=== PATIENT | female | born 1980 | race African-American/Black ===

== ENCOUNTER 2019-05-15 11:33 | Emergency (ER) | payer MEDICAID ==
--- NOTE | 2019-05-15 12:34 | ER Document Report ---
ED Medical Screen (RME) - General Chief Complaint: High Blood Pressure Stated Complaint: COUGH Time Seen by Provider: 05/15/19 12:23 Mode of Arrival: Ambulatory Information source: Patient Notes: 38-year-old female presented to ED for complaint of cough cold congestion runny nose with a high blood pressure. She states she does know she takes hydralazine clonidine and lisinopril but is not sure of the doses. She does not have a primary care doctor. She states she has not seen a doctor in over a year and is just been using all the refill she had on her medications. She states she fille d her medications last about a month ago but still has a few medicines at home. She does not have anybody to follow-up with Her blood pressure is 220/110. I have greeted and performed a rapid initial assessment of this patient. A comprehensive ED assessment and evaluation of the patient, analysis of test results and completion of medical decision making process will be conducted by an additional ED providers. - Related Data Allergies/Adverse Reactions: No Known Allergies Allergy (Verified 05/15/19 12:24) Physical Exam - Vital signs Vitals: Temp Pulse Resp BP Pulse Ox 98.6 F 93 18 221/118 H 98 05/15/19 12:05 05/15/19 12:05 05/15/19 12:05 05/15/19 12:05 05/15/19 12:05 Course - Vital Signs Vital signs: Temp Pulse Resp BP Pulse Ox 98.6 F 93 18 221/118 H 98 05/15/19 12:05 05/15/19 12:05 05/15/19 12:05 05/15/19 12:05 05/15/19 12:05
[2019-05-15] MEDS ORDERED: CLONIDINE HCL 0.2 MG TABLET PO ONE (13:20)
[2019-05-15] MEDS ORDERED: AMLODIPINE BESYLATE 10 MG TABLET PO ONE (13:20)
--- NOTE | 2019-05-15 13:30 | ER Document Report ---
ED General - General Chief Complaint: High Blood Pressure Stated Complaint: COUGH Time Seen by Provider: 05/15/19 12:23 Primary Care Provider: MARGIE BANERJEE MD [HONORARY] - Follow up as needed Mode of Arrival: Ambulatory Notes: 38-year-old female with hypertension on 3 drugs difficult to control noncompliant with medical care in over a year presents with elevated blood pressure and cold symptoms. Cough congestion no shortness of breath no chest pain. 3 days. Not taking anything. She takes 2 of her medications and not the third specifically she is on intermittent clonidine but not lisinopril and sometimes hydralazine. Denies any symptoms today other than her cough and cold symptoms. No headache. - Related Data Allergies/Adverse Reactions: No Known Allergies Allergy (Verified 05/15/19 12:24) Past Medical History - General Information source: Patient - Social History Smoking Status: Never Smoker Family History: Hypertension Patient has suicidal ideation: No Patient has homicidal ideation: No Review of Systems - Review of Systems Notes: REVIEW OF SYSTEMS GEN: Denies fever, chills, weight loss ENT: Congestion runny nose EYES: Denies blurry vision, eye pain, discharge CV: Denies chest pain, palpitations, edema RESP: Denies cough, shortness of breath, wheezing GI: Denies abdominal pain, nausea, vomiting, diarrhea MSK: Denies joint pain/swelling, edema, SKIN: Denies rash, skin lesions LYMPH: Denies swollen glands/lymph nodes NEURO: Denies headache, focal weakness or numbness, dizziness PSYCH: Denies depression, suicidal or homicidal ideation PHYSICAL EXAMINATION General: No acute distress, well-nourished Head: Atraumatic, normocephalic ENT: Mouth normal, oropharynx moist, no exudates or tonsillar enlargement Eyes: Conjunctiva normal, pupils equal, lids normal Neck: No JVD, supple, no guarding CVS: Normal rate, regular rhythm, no murmurs Resp: No resp distress, equal and normal breath sounds bilaterally GI: Nondistended, soft, no tenderness to palpation, no rebound or guarding Ext: No deformities, no edema, normal range of motion in upper and lower ext Back: No CVA or midline TTP Skin: No rash, warm Lymphatic: No lymphadeopathy noted Neuro: Awake, alert. Face symmetric. GCS 15. Physical Exam - Vital signs Vitals: Temp Pulse Resp BP Pulse Ox 98.6 F 93 18 221/118 H 98 05/15/19 12:05 05/15/19 12:05 05/15/19 12:05 05/15/19 12:05 05/15/19 12:05 Course - Re-evaluation Re-evalutation: 05/15/19 13:51 URI symptoms in a patient with uncontrolled hypertension Normal exam Doubt pneumonia Doubt aortic disaster, hypertensive emergency or other emergent causes Does not require evaluation at this time but I will treat her with oral blood pressure medicines and refill all of her home medicines, including Coricidin for her symptoms She was encouraged at length to seek primary care follow-up and counseled on the dangers of uncontrolled hypertension I have discussed with the patient there likely diagnosis, aftercare plan, follow-up plans and my usual and customary return precautions. They verbalized understanding of this. - Vital Signs Vital signs: Temp Pulse Resp BP Pulse Ox 98.6 F 93 18 221/118 H 98 05/15/19 12:05 05/15/19 12:05 05/15/19 12:05 05/15/19 12:05 05/15/19 12:05 - Laboratory Result Diagrams: 05/15/19 13:13 05/15/19 13:13 Laboratory results interpreted by me: 05/15/19 13:13 Urine Protein 100 H Urine Blood SMALL H Urine Urobilinogen 4.0 H Leukocyte Esterase Rfl TRACE H Urine Ascorbic Acid 20 H Discharge - Discharge Clinical Impression: Uncontrolled hypertension Condition: Good Disposition: HOME, SELF-CARE Prescriptions: Hydralazine HCl [Apresoline 10 mg Tablet] 10 mg PO QID #120 tablet Clonidine HCl 0.3 mg PO TID #90 tablet Guaifenesin/Dextromethorphan [Coricidin Hbp Chest Donny-Cough] 1 each PO BIDP PRN #12 capsule PRN Reason: Lisinopril 40 mg PO DAILY #30 tablet Referrals: MARGIE BANERJEE MD [HONORARY] - Follow up as needed
[2019-05-15 13:36] LABS: ABSOLUTE BASOPHILS # (AUTO) 0.1 10^3/uL (0.0-0.2); ABSOLUTE EOSINOPHILS # (AUTO) 0.3 10^3/uL (0.0-0.6); ABSOLUTE MONOCYTES (AUTO) 0.5 10^3/uL (0.1-1.4); ABSOLUTE NEUT (AUTO) 4.3 10^3/uL (1.7-8.2); BASOPHILS % (AUTO) 1.2 % (0-2); EOSINOPHILS % (AUTO) 3.5 % (0-6); HEMATOCRIT 37.1 % (36.0-47.0); HEMOGLOBIN 12.9 g/dL (12.0-15.5); LYMPHOCYTES % (AUTO) 27.6 % (13-45); MEAN CORPUSCULAR HEMOGLOBIN 30.9 pg (27.0-33.4); MEAN CORPUSCULAR HGB CONC 34.8 g/dL (32.0-36.0); MEAN CORPUSCULAR VOLUME 89 fl (80-97); MONOCYTES % (AUTO) 7.1 % (3-13); PLATELET COUNT 284 10^3/uL (150-450); RED BLOOD COUNT 4.19 10^6/uL (3.72-5.28); RED CELL DISTRIBUTION WIDTH 13.4 % (11.5-14.0); SEGMENTED NEUTROPHILS % (AUTO) 60.6 % (42-78); TOTAL CELLS COUNTED % (AUTO) 100 %; WHITE BLOOD COUNT 7.1 10^3/uL (4.0-10.5)
[2019-05-15 13:47] LABS: APPEARANCE,URINE SLIGHTLY-CLOUDY; BILIRUBIN,URINE NEGATIVE (NEGATIVE); COLOR,URINE YELLOW; GLUCOSE, URINE NEGATIVE (NEGATIVE); KETONES,URINE NEGATIVE (NEGATIVE); PROTEIN,URINE 100 mg/dL (NEGATIVE); URINE SPECIFIC GRAVITY 1.023
[2019-05-15 13:52] VITALS: BP 215/178
[2019-05-15 13:59] LABS: ALBUMIN 3.9 g/dL (3.5-5.0); ALKALINE PHOSPHATASE 87 U/L (38-126); ANION GAP 6 (5-19); ASPARTATE AMINO TRANSFERASE 25 U/L (14-36); BILIRUBIN,DIRECT 0.2 mg/dL (0.0-0.4); BILIRUBIN,TOTAL 0.6 mg/dL (0.2-1.3); BLOOD UREA NITROGEN 14 mg/dL (7-20); CALCIUM 9.6 mg/dL (8.4-10.2); CARBON DIOXIDE 38 mmol/L (22-30); CHLORIDE 97 mmol/L (98-107); GLUCOSE 112 mg/dL (75-110); POTASSIUM 3.3 mmol/L (3.6-5.0); TOTAL PROTEIN 7.8 g/dL (6.3-8.2)
== END 2019-05-15 13:50 | disposition home or self-care (01) ==
LOC: EDBD → ER 11:33
DX: I10 Essential (primary) hypertension (principal); R05 Cough; R09.81 Nasal congestion; R09.89 Other specified symptoms and signs involving the circulatory and respiratory systems; Z79.899 Other long term (current) drug therapy
CPT/HCPCS: 99283; 36415; 85025; 80053; 81001; J3490

== ENCOUNTER 2020-03-03 05:55 | Emergency (ER) | payer MEDICAID ==
[2020-03-03] MEDS ORDERED: ACETAMINOPHEN 325 MG TABLET PO ONE (08:26)
[2020-03-03] MEDS ORDERED: PENICILLIN G BENZATHINE 1.2 MILLION UNIT/2 ML DISP.SYRIN IM ONE (08:26)
[2020-03-03] MEDS ORDERED: LIDOCAINE 2% VISCOUS SOLN 15 ML UDCUP PO ONE (08:26)
--- NOTE | 2020-03-03 08:31 | ER Document Report ---
HPI - HPI Patient complains to provider of: Sore throat Time Seen by Provider: 03/03/20 08:20 Onset: Yesterday Onset/Duration: Gradual Quality of pain: Achy Pain Level: 3 Context: Patient presents complaint of sore throat that started yesterday. Patient denies any fever, cough, nausea vomiting or diarrhea. Associated Symptoms: Sore throat. denies: Nonproductive cough, Fever, Nausea, Vomiting Exacerbated by: Denies Relieved by: Denies Similar symptoms previously: No Recently seen / treated by doctor: No - ROS ROS below otherwise negative: Yes Systems Reviewed and Negative: Yes All other systems reviewed and negative - CONSTITUTIONAL Constitutional: DENIES: Fever - EENT EENT: REPORTS: Sore Throat. DENIES: Congestion - RESPIRATORY Respiratory: DENIES: Trouble Breathing, Coughing - GASTROINTESTINAL Gastrointestinal: DENIES: Nausea, Patient vomiting, Diarrhea - DERM Skin Color: Normal Skin Problems: None Past Medical History - General Information source: Patient - Social History Smoking Status: Never Smoker Frequency of alcohol use: None Drug Abuse: None Occupation: None Lives with: Family Family History: Hypertension - Past Medical History Cardiac Medical History: Reports: Hx Hypertension Past Surgical History: Reports: Hx Gynecologic Surgery Vertical Provider Document - CONSTITUTIONAL Agree With Documented VS: Yes Exam Limitations: No Limitations General Appearance: WD/WN, No Apparent Distress - HEENT HEENT: Atraumatic, Normocephalic, Pharyngeal Tenderness, Pharyngeal Erythema. negative: Pharyngeal Exudate - NECK Neck: Lymphadenopathy-Left, Lymphadenopathy-Right - RESPIRATORY Respiratory: Breath Sounds Normal, No Respiratory Distress - CARDIOVASCULAR Cardiovascular: Regular Rate, Regular Rhythm - BACK Back: Normal Inspection - MUSCULOSKELETAL/EXTREMETIES Musculoskeletal/Extremeties: MAEW - NEURO Level of Consciousness: Awake, Alert, Appropriate Motor/Sensory: No Motor Deficit - DERM Integumentary: Warm, Dry, No Rash Course - Re-evaluation Re-evalutation: 03/03/20 Patient with positive strep test, no potential airway compromise. Patient nontoxic in appearance. 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 - Laboratory Laboratory results interpreted by me: 03/03/20 11:28 Labs- All tests 24 hr 03/03/20 06:10 Group A Strep Rapid POSITIVE Discharge - Discharge Clinical Impression: Strep pharyngitis Condition: Stable Disposition: HOME, SELF-CARE Instructions: Acetaminophen, Antibiotic Shot ([facility]), Strep Throat ([facility]) Additional Instructions: return as needed for any new or worsening symptoms follow up with your primary care provider as needed for a recheck Forms: Return to Work Referrals: JANINE HOOK MD [Primary Care Provider] - Follow up as needed
[2020-03-03 08:52] VITALS: BP 188/117
== END 2020-03-03 09:26 | disposition home or self-care (01) ==
LOC: ER 05:55
DX: J02.0 Streptococcal pharyngitis (principal); I10 Essential (primary) hypertension
CPT/HCPCS: 99284; 96372; 87880; J3490 ×2; J0561